=== PATIENT | male | born 1990 | race Caucasian/White ===

== ENCOUNTER 2024-06-02 10:30 | Day surgery (SDC) | payer MEDICARE, OTHER ==
[2024-05-29 14:17] VITALS: BMI 38.9
[~2024-06-02 10:30] MED LIST: LIDOCAINE 1% (10MG/ML) FOR IV START INTRADERMA PRN
[2024-06-02 11:02] VITALS: TEMP 97.5
[2024-06-02] MEDS: IV FLUID CONTINUATION 1,000 ML IV ONE ×2 (11:11→11:54)
[2024-06-02] MEDS: LACTATED RINGERS 1,000 ML IV SCH (11:12)
[2024-06-02] MEDS ORDERED: PROPOFOL 10 MG/ML 20 ML VIAL IV ONE (11:57)
--- NOTE | 2024-06-02 12:02 | P.GSHP ---
History of Present Illness H&P Date: 06/02/24 Chief Complaint: Dysphagia 33-year-old male here for EGD. Patient with complaints of dysphagia. Usually occurs at restaurants when he is anxious. Mild GERD symptoms as well. No pain. Past Medical History Past Medical History: Asthma Additional Past Medical History / Comment(s): has a hard time swallowing, cerebral [id number] devices History of Any Multi-Drug Resistant Organisms: None Reported Past Surgical History: Orthopedic Surgery Additional Past Surgical History / Comment(s): orthopedic surgical procedures for cp x3-approx age 4-was in a body cast Past Anesthesia/Blood Transfusion Reactions: No Reported Reaction Additional Past Anesthesia/Blood Transfusion Reaction / Comment(s): no problem with prior blood transfusion-was donated by mom. woke up during surgery as a child Smoking Status: Never smoker - Past Family History Mother Family Medical History: No Reported History Medications and Allergies Home Medications Medication Instructions Recorded Confirmed Type Albuterol Inhaler [Ventolin Hfa 1 - 2 puff INHALATION Q6H PRN 05/29/24 05/29/24 History Inhaler] Cetirizine HCl [Zyrtec] 10 mg PO DAILY 05/29/24 06/02/24 History Fluticasone Propion/Salmeterol 1 inhalation PO BID 05/29/24 06/02/24 History [Advair 250-50 Diskus] Montelukast Sodium 10 mg PO HS 05/29/24 06/02/24 History Allergies Allergy/AdvReac Type Severity Reaction Status Date / Time No Known Allergies Allergy Verified 06/02/24 10:52 Surgical - Exam Vital Signs Temp Pulse Resp BP Pulse Ox 97.5 F L 104 H 18 133/77 99 06/02/24 11:01 06/02/24 11:01 06/02/24 11:01 06/02/24 11:01 06/02/24 11:01 Physical exam: General: Well-developed, well-nourished HEENT: Normocephalic, sclerae nonicteric Abdomen: Nontender, nondistended Extremities: No edema Neuro: Alert and oriented Assessment and Plan (1) Dysphagia Narrative/Plan: Will proceed with EGD at this time. Current Visit: Yes Status: Acute Code(s): R13.10 - DYSPHAGIA, UNSPECIFIED SNOMED Code(s): 84302250
--- NOTE | 2024-06-02 12:12 | P.PCN ---
Date of Procedure: 06/02/24 Procedure(s) Performed: Preoperative Dx: Dysphagia Postoperative Dx: Gastritis Procedure: EGD with Bx Anesthesia: Sedation Endoscopist: Dr. Clark Specimens: Antrum, body of stomach Endoscopic Procedure: The patient was on the endoscopy table in the left decubitus position. The Olympus gastroscope was inserted into the oropharynx and passed under direct visualization to the region of the third portion of the duodenum. From that point the scope was slowly withdrawn inspecting all surfaces carefully. There were no neoplastic inflammatory or polypoid lesions throughout the duodenum. The pylorus was widely patent. The stomach was carefully inspected. There was diffuse gastritis present. No ulcers were seen. Biopsies of antrum and body of the stomach to place. Retroflexion revealed a normal hiatus. The esophagus was then carefully examined. There were no neoplastic inflammatory or polypoid lesions throughout the visualized esophagus. The patient was then taken to the recovery room in stable condition per anesthesia guidelines. Recommendations: Etiology for dysphagia not identified at this time. Patient with inflammatory changes of the stomach. Will start antiacid therapy. Await biopsy results.
[2024-06-02 12:18] VITALS: RESP 16
[2024-06-02 12:30] VITALS: BP 133/83; PULSE 87
== END 2024-06-02 12:52 | disposition home or self-care (01) ==
LOC: ORWHC2ENDO 10:30
PROVIDERS: ATTEND Surgery
DX: K29.50 Unspecified chronic gastritis without bleeding (principal); B96.81 Helicobacter pylori [H. pylori] as the cause of diseases classified elsewhere; J45.909 Unspecified asthma, uncomplicated; G80.9 Cerebral palsy, unspecified; Z79.51 Long term (current) use of inhaled steroids; Z79.899 Other long term (current) drug therapy
CPT/HCPCS: 43239; 88305; 88341; 88342